=== PATIENT | male | born 1955 | race Caucasian/White ===

== ENCOUNTER → 2018-06-29 10:08 | Outpatient (CLI) | payer OTHER, SELFPAY ==
[2018-06-29 10:36] LABS: Add Manual Diff / Slide Review NO; Basophils Absolute Auto 0 /uL (0-100); Basophils Percent Auto 0.5 % (0-2); Eosinophils Absolute Auto 100 /uL (0-450); Hemoglobin 15.1 g/dL (13.5-17.5); Lymphocytes Absolute Auto 1400 /uL (1100-4500); Lymphocytes Percent Auto 20.8 % (25-40); Mean Corpuscular Hemoglobin 34.6 PG (26-34); Mean Corpuscular Volume 98.9 fL (80-100); Monocytes Absolute Auto 900 /uL (0-900); Monocytes Percent Auto 12.9 % (3-14); Neutrophils Absolute Auto 4300 /uL (1500-7000); Neutrophils Percent Auto 63.8 % (50-75); Platelet Count 322 X10^3/uL (150-400); Red Blood Cell Count 4.35 X10^6/uL (4.5-5.9); Red Cell Distribution Width 12.3 % (11.6-14.8); White Blood Cell Count 6.7 X10^3/uL (4.5-11.0)
[2018-06-29 10:43] LABS: Alanine Aminotransferase 24 IU/L (21-72); Albumin 4.8 g/dL (3.5-5.0); Albumin Globulin Ratio 1.7 (1.0-2.8); Alkaline Phosphatase 85 U/L (38-126); Aspartate Aminotransferase 27 IU/L (17-59); BUN Creatinine Ratio 8.6 (6-22); Bilirubin Total 0.7 mg/dL (0.2-1.3); Blood Urea Nitrogen 6 mg/dL (9-20); Carbon Dioxide 31 mmol/L (22-32); Chloride 94 mmol/L (98-107); Cholesterol 191 mg/dL (140-199); Estimated Glomerular Filt Rate > 60.0 mL/min (>60); Globulin 2.9 g/dL (1.7-4.1); Glucose 102 mg/dL (80-110); HDL Cholesterol 100 mg/dL (40-60); HEMOLYSIS < 15 (0-50); LDL Cholesterol Calculated 73 mg/dL (<100); Sodium 134 mmol/L (137-145); Total Protein 7.7 g/dL (6.3-8.2); Triglycerides 88 mg/dL (35-150)
[2018-06-29 10:44] LABS: Potassium 5.5 mmol/L (3.4-5.1)
[2018-06-29 11:13] LABS: Prostate Specific Antigen Scrn 1.55 ng/mL (0.1-4.0)
[2018-06-29 11:14] LABS: Thyroid Stimulating Hormone 3.57 uIU/mL (0.47-4.68)
== END ==
PROVIDERS: PCP Family Medicine; Visit Provider Family Medicine
DX: I10 Essential (primary) hypertension (principal); Z00.00 Encounter for general adult medical examination without abnormal findings; Z12.5 Encounter for screening for malignant neoplasm of prostate
CPT/HCPCS: 36415; 80053; 80061; 84443; 85025; G0103

== ENCOUNTER 2025-05-02 09:40 | Day surgery (SDC) | payer OTHER, SELFPAY ==
[2025-04-27 08:29] VITALS: BMI 22.3
[2025-05-02] VITALS (10 sets, daily range): BP systolic 119–177; BP diastolic 58–99; PULSE 59–105; RESP 10–20; TEMP 36.3–36.7; O2SAT 96–100
[2025-05-02] MEDS: LACTATED RINGERS 1,000 ML 42 ML IV ×2 (10:16→13:20)
--- NOTE | 2025-05-02 11:38 | PM.PREOP ---
Pre-operative Note COVID-19 COVID-19 status: Not tested Interval Note History & Physical reviewed/Exam performed by Physician: Yes Changes to H&P: No ASA Class (for procedural sedation): II
--- NOTE | 2025-05-02 12:28 | SUR.OPER ---
Head supported on pillow, face protected with foam, patient on pink padded OR bed. Arms padded and tucked at sides bilaterally. Purple strap across shoulders, legs uncrossed, tape over blanket over lower legs.
[2025-05-02] MEDS: ACETAMINOPHEN IV 1,000 MG/100 ML VIAL 400 MG IV (14:13)
--- NOTE | 2025-05-02 14:32 | PM.OP.1 ---
Operative Date/Time/Diagnoses Date of procedure: 05/02/25 Time of procedure: 14:32 Pre-op diagnosis: Bilateral inguinal hernias Post-op diagnosis: same Procedure & Clinicians Procedure: Robotic bilateral inguinal hernia repair with mesh Same procedure(s) as scheduled: Yes Surgeon: Kieran Wei Assisted?: Yes Sliver Machine Operator: Smith Jackson Anesthesia Type: General Operative Notes Findings: Indirect and femoral right inguinal hernia, direct left inguinal hernia Applied: none Estimated Blood Loss (mL): 10 Procedure in detail: The patient was given preoperative antibiotics. The patient was brought to the operating room, placed on the table in the supine position with the arms tucked and general anesthesia was induced. The abdomen was prepped and draped in the usual fashion. A time-out was performed. A 1 cm transverse incision was created superior to the umbilicus and dissection was carried down to the fascia. The fascia was scored transversely with cautery. The fascia was grasped with a Lizzie clamp to elevate the abdominal wall. A Peon clamp was used to gandhi the peritoneum. The 12 mm robotic port was placed and the abdomen was insufflated to 15 mmHg. The camera was inserted, there was no evidence of any injury from the entry. Bilateral inguinal hernias were observed. 8 mm ports were placed under direct vision in the mid left and mid right abdomen. The patient was positioned in Trendelenburg. The robot was docked. Dissection was started on the right side. The peritoneum was dissected off the right cord structures and the Del's ligament was exposed. There was a rather large indirect defect and the sac was dissected out of the internal ring and dissected off the cord structures. The right vas deferens was visualized. There was also a smaller fat containing femoral hernia that was reduced. An extra-large right Bard mesh was brought in and placed over the defect with the medial edge overlapping the pubic symphysis. Next, a left peritoneal flap was created. The peritoneum was dissected off the left cord structures and the Del's ligament was exposed. There was a fat containing direct defect. An extra-large left Bard mesh was brought in and placed over the defect with the medial edge overlapping the pubic symphysis. Finally both peritoneal flaps were closed with a running 3-0 barbed suture. All of the sutures were removed and accounted for. The robot was undocked. The 8 mm ports were removed under direct vision. The abdomen was desufflated. The 12 mm port was removed. Additional local was injected into the fascia and the fascial incision was closed with 2 interrupted 0 Vicryl sutures. The skin incisions were closed with 4 Monocryl, Steri-Strips and Band-Aids. Smith FRAZIER provided assistance with exposure, retraction and closure of incisions. Complications: none Post-operative Condition: stable Disposition: PACU
[2025-05-02] MEDS: HYDROmorphone 2 MG/ML SYRINGE 0.5 MG IV (15:34)
== END 2025-05-02 16:13 | disposition home or self-care (01) ==
PROVIDERS: PCP Family Medicine; Referring Provider Surgery; Visit Provider Surgery
PROC: 0YQ54ZZ Repair Right Inguinal Region, Percutaneous Endoscopic Approach (ICD-10-PCS; CPT 49650; principal; 2025-05-02 11:45)
DX: K40.20 Bilateral inguinal hernia, without obstruction or gangrene, not specified as recurrent (principal); I10 Essential (primary) hypertension; F17.210 Nicotine dependence, cigarettes, uncomplicated
CPT/HCPCS: 49650; S2900; C1781; J0131; J0689; J1100; J1171; J2405; J2704; J3010; J7120